=== PATIENT | male | born 1990 | race Caucasian/White ===

== ENCOUNTER 2020-06-29 12:16 | Emergency (ER) | payer SELFPAY ==
[2020-06-29 12:37] VITALS: BP 136/83
--- NOTE | 2020-06-29 13:14 | RADIOLOGY REPORT (SQ) ---
EXAM DESCRIPTION: CHEST 2 VIEWS IMAGES COMPLETED DATE/TIME: 06/29/2020 11:57 am REASON FOR STUDY: left chest pain COMPARISON: None. EXAM PARAMETERS: NUMBER OF VIEWS: two views TECHNIQUE: Digital Frontal and Lateral radiographic views of the chest acquired. RADIATION DOSE: NA LIMITATIONS: none FINDINGS: LUNGS AND PLEURA: No opacities, masses or pneumothorax. No pleural effusion. MEDIASTINUM AND HILAR STRUCTURES: No masses or contour abnormalities. HEART AND VASCULAR STRUCTURES: Heart normal size. No evidence for failure. BONES: No acute findings. HARDWARE: None in the chest. OTHER: No other significant finding. IMPRESSION: NO ACUTE RADIOGRAPHIC FINDING IN THE CHEST. TECHNICAL DOCUMENTATION: JOB ID: [id number] 2010 [employer]- All Rights Reserved Reading location - IP/workstation name: [email or web address]
--- NOTE | 2020-06-29 13:22 | ER Document Report ---
ED General - General Chief Complaint: Chest Tightness Stated Complaint: CHEST TIGHTNESS,LEFT ARM PAIN Time Seen by Provider: 06/29/20 12:38 Notes: CHIEF COMPLAINT: Swelling in left axilla, left chest pain HPI: 30-year-old male presenting to the emergency department complaining of swelling to a lymph node in the left axilla 4 days ago. States it is improved significantly but over the last 4 days has had pain in the left chest wall. No fever. No cough. No shortness of breath. No abdominal pain. Has taken no medications for his symptoms. ROS: See HPI - all other systems were reviewed and are otherwise negative Constitutional: no fever Eyes: no drainage, no blurred vision ENT: no runny nose, no sore throat Cardiovascular: Positive chest wall pain Resp: no SOB, no cough GI: no vomiting, no diarrhea, no abdominal pain : no dysuria Integumentary: no rash Allergy: no hives Musculoskeletal: Positive extremity pain or swelling Neurological: no numbness/tingling, no weakness MEDICATIONS: I agree with the patient medications as charted by the RN. ALLERGIES: I agree with the allergies as charted by the RN. PAST MEDICAL HISTORY/PAST SURGICAL HISTORY: Reviewed and agree as charted by RN. SOCIAL HISTORY: Reviewed and agree as charted by RN. FAMILY HISTORY: No significant familial comorbid conditions directly related to patient complaint EXAM: Reviewed vital signs as charted by RN. CONSTITUTIONAL: Alert and oriented and responds appropriately to questions. Well-appearing; well-nourished HEAD: Normocephalic; atraumatic EYES: PERRL; Conjunctivae clear, sclerae non-icteric ENT: normal nose; no rhinorrhea; moist mucous membranes NECK: Supple without meningismus CARD: RRR; no murmurs, no clicks, no rubs, no gallops; symmetric distal pulses RESP: Normal chest excursion without splinting or tachypnea; breath sounds clear and equal bilaterally; no wheezes, no rhonchi, no rales, pulse oximetry 98% on room air not hypoxic ABD/GI: Normal bowel sounds; non-distended; soft, non-tender, no rebound, no guarding; no palpable organomegaly or masses. BACK: The back appears normal and is non-tender to palpation EXT: Normal ROM in all joints; very small mobile lymph node in the left axilla that is mildly tender on palpation without overlying erythema or fluctuance. There is mild tenderness around the lymph node in the chest wall on palpation; no cyanosis, no effusions, no edema SKIN: Normal color for age and race; warm; dry; good turgor; no acute lesions noted NEURO: Moves all extremities equally; Motor and sensory function intact PSYCH: The patient's mood and manner are appropriate. Grooming and personal hy giene are appropriate. MDM: 30-year-old male who developed left lymph node swelling in the left axilla 4 days ago. It has improved over time but he has residual chest wall pain. I have low suspicion for ACS. Patient is otherwise healthy. EKG normal sinus rhythm with a ventricular rate of 89, FL 168, QT 332, QTc 404. Normal EKG, no other ectopy. Interpreted by emergency department physicians. Will obtain a chest x-ray as patient is concerned about his lungs although he has not had cough or shortness of breath. If chest x-ray negative for acute findings anticipate discharge home with anti-inflammatories and PCP referral TRAVEL OUTSIDE OF THE [place] IN LAST 30 DAYS: No - Related Data Allergies/Adverse Reactions: No Known Allergies Allergy (Verified 06/16/13 11:44) Past Medical History - Social History Smoking Status: Unknown if Ever Smoked Family History: Reviewed & Not Pertinent - Immunizations Hx Diphtheria, Pertussis, Tetanus Vaccination: Yes Physical Exam - Vital signs Vitals: Temp Pulse Resp BP Pulse Ox 98.2 F 83 16 136/83 H 97 06/29/20 12:33 06/29/20 12:33 06/29/20 12:33 06/29/20 12:33 06/29/20 12:33 Course - Re-evaluation Re-evalutation: 06/29/20 13:23 Chest x-ray does not show evidence of infiltrate or other abnormalities. I believe this is likely chest wall issue, will place on anti-inflammatories warm compresses to the axilla. No indication for an infected lymph node requiring incision and drainage today - Vital Signs Vital signs: Temp Pulse Resp BP Pulse Ox 98.2 F 83 16 136/83 H 97 06/29/20 12:33 06/29/20 12:33 06/29/20 12:33 06/29/20 12:33 06/29/20 12:33 - Laboratory Results Critical Laboratory Results Reviewed: No Critical Results - Radiology Results Critical Radiology Results Reviewed: No Critical Results Discharge - Discharge Clinical Impression: Lymphadenopathy, Chest wall pain Condition: Stable Disposition: HOME, SELF-CARE Additional Instructions: Your chest x-ray and EKG did not show acute findings. Warm compresses to the left axilla to help with the swelling of the lymph node. Take the anti- inflammatories for pain and swelling. Follow-up with your primary care provider for reevaluation of symptoms if they persist Prescriptions: Diclofenac Sodium [Voltaren 50 Mg Tablet.] 50 mg PO BID #20 tablet. Referrals: CHARLES ROBB DO [NO LOCAL MD] - Follow up as needed
--- NOTE | 2020-06-29 15:47 | EKG REPORT ---
SEVERITY:- NORMAL ECG - SINUS RHYTHM : Confirmed by: Davi Zhou MD 29-Jun-2020 15:45:59
== END 2020-06-29 13:45 | disposition home or self-care (01) ==
LOC: ER 12:16
DX: R59.1 Generalized enlarged lymph nodes (principal); R07.9 Chest pain, unspecified; M79.602 Pain in left arm
CPT/HCPCS: 71046; 93005; 93010; 99284